=== PATIENT | female | born 1985 | race Caucasian/White ===

== ENCOUNTER 2019-06-15 01:34 | Emergency (ER) | payer BC ==
--- NOTE | 2019-06-15 01:48 | EDM.PDOC ---
ED HPI GENERAL MEDICAL PROBLEM - General Chief Complaint: PUMP TENDER Problem Stated Complaint: 14WKS AND HAVING DISCHARGES Time Seen by Provider: 06/15/19 01:35 - History of Present Illness INITIAL COMMENTS - FREE TEXT/NARRATIVE: HISTORY AND PHYSICAL: History of present illness: The patient is a 33-year-old female who is a 2 para 0 and is 14 weeks by a confirmed by Dr. Coronado and whose EDC is 12/13/2019 and presents with complaints of having a normal day yesterday and being asleep when she woke up feeling like there was fluid coming out of her vagina and having clear fluid per vagina.. She did not have any bleeding from the vagina and no pain. She says that she only has had one episode of this when she was in bed and she has not had any more leakage of fluid nor has she had to use a pad She has not had sexual intercourse the last 24 hours and has not had any dysuria frequency urgency or flank pain. She's had no fever chills nausea vomiting and has been eating and drinking normally. The patient had a miscarriage with her first at about 6 weeks and she is very concerned about tonight's events and contacted her OB M.D. who recommended that she come here for evaluation. She says that the fluid was absolutely clear and not bloody or yellow. On my review of the computer the patient is noted to be O- status. Review of systems: As per history of present illness and below otherwise all systems reviewed and negative. Past medical history: As per history of present illness and as reviewed below otherwise noncontributory. Surgical history: As per history of present illness and as reviewed below otherwise noncontributory. Social history: No reported history of drug or alcohol abuse. Family history: As per history of present illness and as reviewed below otherwise noncontributory. Physical exam: General: Well-developed well-nourished mildly overweight female who is nontoxic and vital signs are noted by me. HEENT: Atraumatic, normocephalic, negative for conjunctival pallor or scleral icterus, mucous membranes moist, throat clear, neck supple, nontender, trachea midline. Lungs: Clear to auscultation, breath sounds equal bilaterally, chest nontender. Heart: S1S2, regular rate and rhythm no overt murmurs Abdomen: Soft, nondistended, nontender. Negative for masses or hepatosplenomegaly. Negative for costovertebral tenderness. Pelvis: Stable nontender. Genitourinary: Sternal genitalia within normal limits and there is some whitish thickish discharge in the vault without any clear fluid or blood. There is some mucus at the cervical os but the os is closed. Rectal: Deferred. Extremities: Atraumatic, negative for cords or calf pain. Neurovascular unremarkable. Neuro: Awake, alert, oriented. Cranial nerves II through XII unremarkable. Cerebellum unremarkable. Motor and sensory unremarkable throughout. Exam nonfocal. Diagnostics: CBC serum quantitative hCG pelvic ultrasound Therapeutics: Specifically called the [facility] radiologist specifically asked about the amniotic fluid on the ultrasound which she told me was normal appearing. 0255: Case was discussed with Dr. Coronado who agrees with discharge home and pelvic rest and she would like the patient to call the clinic for a follow-up appointment in the next 24-36 hours. I have informed patient and significant other bedside of testing results and plan for home. Dr. Coronado does not want any Rho Debby that there was no vaginal bleeding and no sign of any subchorionic bleeding Impression: Unexplained vaginal discharge in second trimester stable Definitive disposition and diagnosis as appropriate pending reevaluation and review of above. - Related Data Allergies Allergy/AdvReac Type Severity Reaction Status Date / Time No Known Allergies Allergy Verified 06/15/19 01:42 Home Meds: Home Meds #103/Iron Fumarate/Fa [ ] 1 tab PO DAILY 06/15/19 [ History] Social & Family History - Tobacco Use Smoking Status *Q: Never Smoker - Recreational Drug Use Recreational Drug Use: No ED ROS GENERAL - Review of Systems Review Of Systems: ROS reveals no pertinent complaints other than HPI. ED EXAM, GENERAL - Physical Exam Exam: See Below (See dictation) Course - Vital Signs Last Recorded V/S: Last Vital Signs Temp 36.1 C 06/15/19 01:34 Pulse 81 06/15/19 01:34 Resp 18 06/15/19 01:34 BP 119/60 06/15/19 01:34 Pulse Ox 97 06/15/19 01:34 - Orders/Labs/Meds Orders: Active Orders 24 hr Category Date Time Status HCG QUANTITATIVE [CHEM] Stat Lab 06/15/19 02:00 Received Labs: Laboratory Tests 06/15/19 Range/Units 02:00 WBC 8.41 (4.0-11.0) K/uL RBC 4.16 L (4.30-5.90) M/uL Hgb 12.1 (12.0-16.0) g/dL Hct 36.0 (36.0-46.0) % MCV 86.5 (80.0-98.0) fL MCH 29.1 (27.0-32.0) pg MCHC 33.6 (31.0-37.0) g/dL RDW Std Deviation 41.3 (28.0-62.0) fl RDW Coeff of Nayely 13 (11.0-15.0) % Plt Count 238 (150-400) K/uL MPV 10.00 (7.40-12.00) fL Neut % (Auto) 63.4 (48.0-80.0) % Lymph % (Auto) 27.5 (16.0-40.0) % [place] % (Auto) 7.6 (0.0-15.0) % Eos % (Auto) 1.4 (0.0-7.0) % Baso % (Auto) 0.1 (0.0-1.5) % Neut # (Auto) 5.3 (1.4-5.7) K/uL Lymph # (Auto) 2.3 (0.6-2.4) K/uL [place] # (Auto) 0.6 (0.0-0.8) K/uL Eos # (Auto) 0.1 (0.0-0.7) K/uL Baso # (Auto) 0.0 (0.0-0.1) K/uL Nucleated RBC % 0.0 /100WBC Nucleated RBCs # 0 K/uL Departure - Departure Time of Disposition: 03:00 Disposition: Home, Self-Care 01 Condition: Good Clinical Impression: Second trimester , Vaginal discharge - Discharge Information Referrals: PCP,None [Primary Care Provider] - Forms: ED Department Discharge Additional Instructions: The following information is given to patients seen in the emergency department who are being discharged to home. This information is to outline your options for follow-up care. We provide all patients seen in our emergency department with a follow-up referral. The need for follow-up, as well as the timing and circumstances, are variable depending upon the specifics of your emergency department visit. If you don't have a primary care physician on staff, we will provide you with a referral. We always advise you to contact your personal physician following an emergency department visit to inform them of the circumstance of the visit and for follow-up with them and/or the need for any referrals to a consulting specialist. The emergency department will also refer you to a specialist when appropriate. This referral assures that you have the opportunity for followup care with a specialist. All of these measure are taken in an effort to provide you with optimal care, which includes your followup. Under all circumstances we always encourage you to contact your private physician who remains a resource for coordinating your care. When calling for followup care, please make the office aware that this follow-up is from your recent emergency room visit. If for any reason you are refused follow-up, please contact the [facility] emergency department at and ask to speak to the emergency department charge nurse. [facility] [address] [address] Strict pelvic rest until you are cleared by Dr. Coronado. Please call the clinic later this morning and schedule a follow-up appointment with her in the next 24- 36 hours per her direction. Push hydration and continue to monitor symptoms. Return to ER as needed and as discussed - My Orders Last 24 Hours: My Active Orders 06/15/19 02:00 HCG QUANTITATIVE [CHEM] Stat - Assessment/Plan Last 24 Hours: My Active Orders 06/15/19 02:00 HCG QUANTITATIVE [CHEM] Stat
--- NOTE | 2019-06-15 02:53 | US ---
INDICATION: . Leaking vaginal fluid. TECHNIQUE: Ultrasound OB pelvis transabdominal. Real-time chavez-scale imaging of the fetus was performed as well as color Doppler and spectral Doppler analysis of the umbilical artery. COMPARISON: None. FINDINGS: Sonographic imaging demonstrates a single living intrauterine gestation. Fetus demonstrates a regular cardiac rate of 153 beats per minute. Fetus has a cephalic orientation. The placenta lies posterior without evidence of placenta previa. Amniotic fluid volume appears normal. Biometry: Biparietal diameter: 2.5 cm, 14 weeks 1 day. Femoral length: 1.4 cm, 14 weeks 1 day. [place]-rump length: 1.4 cm, 14 weeks 1 day. No sign of hemorrhage or other fluid collection. Ovaries were not visualized. IMPRESSION: 1.Single viable intrauterine with an estimated ultrasound age of 14 weeks 1 day and estimated date of delivery December 13, 2019. 2.Amniotic fluid volume is normal. No sign of hemorrhage or other abnormality. Dictated by Wayne Vela MD @ Jun 15 2019 6:07PM Signed by Dr. Wayne Vela @ Jun 15 2019 6:18PM
== END 2019-06-15 03:08 | disposition home or self-care (01) ==
LOC: MW.ED 01:34
DX: O99.89 Other specified diseases and conditions complicating pregnancy, childbirth and the puerperium (principal); N89.8 Other specified noninflammatory disorders of vagina; Z3A.14 14 weeks gestation of pregnancy
CPT/HCPCS: 36415; 76815; 76815-26; 84702; 85025; 99283-25; 99284

== ENCOUNTER 2019-12-06 00:23 | Inpatient (IN) | payer BC ==
[2019-12-06] MEDS ORDERED: Tranexamic Acid 1,000 MG in Sodium Chloride 0.9% 100 ML IV PRN (00:44)
[2019-12-06] MEDS ORDERED: Water For Irrigation,Sterile 1,000 ML Container IRR PRN (00:44)
[2019-12-06] MEDS ORDERED: Sodium Chloride 0.9% 10 ML SDV IV PRN (00:44)
[2019-12-06] MEDS ORDERED: Carboprost Tromethamine 250 MCG/1 ML Amp IM PRN (00:44)
[2019-12-06] MEDS ORDERED: Sodium Chloride 0.9% 10 ML Syringe FLUSH PRN (00:44)
[2019-12-06] MEDS ORDERED: Misoprostol 200 MCG Tab PO PRN (00:44)
[2019-12-06] MEDS ORDERED: Nalbuphine 10 MG/1 ML Vial IVPUSH PRN (00:44)
[2019-12-06] MEDS ORDERED: Sodium Chloride 0.9% 2.5 ML Syringe FLUSH PRN (00:44)
[2019-12-06] MEDS ORDERED: Methylergonovine 0.2 MG/1 ML Amp IM PRN (00:44)
[2019-12-06] MEDS ORDERED: Lidocaine 1% 50 ML MDV INJECT PRN (00:44)
[2019-12-06] MEDS ORDERED: Terbutaline 1 MG/ML SDV SUBCUT PRN (00:44)
[2019-12-06] MEDS ORDERED: Oxytocin/0.9 % Sodium Chloride 30 UNIT/500 ML BAG IV SCH ×2 (00:45)
[2019-12-06] MEDS: Lactated Ringers 1,000 ML IV SCH ×4 (01:13→22:00)
[2019-12-06] MEDS ORDERED: Misoprostol 25 MCG (1/4 of 100 MCG) Tab VAG PRN (01:30)
[2019-12-06] MEDS: Misoprostol 25 MCG (1/4 of 100 MCG) Tab VAG PRN ×2 (05:51→10:40)
[2019-12-06] MEDS: Butorphanol 1 MG/ML SDV IVPUSH PRN ×2 (11:38→16:42)
[2019-12-06] MEDS ORDERED: Bupivicaine/fentaNYL/NS 250 ML ONE (19:54)
[2019-12-06] MEDS ORDERED: Ropivacaine 0.2% PF 2 MG/ML 20 ML SDV ONE ×2 (19:54→20:15)
[2019-12-06] MEDS ORDERED: ePHEDrine 50 MG/ML SDV ONE (20:25)
--- NOTE | 2019-12-06 20:47 | PCM.PREANE ---
Preanesthetic Assessment - Procedure Proposed Procedure: labor epidural - Anesthesia/Transfusion/Family Hx Anesthesia History: Prior Anesthesia Without Reaction Family History of Anesthesia Reaction: No Transfusion History: No Prior Transfusion(s) - Review of Systems General: No Symptoms Pulmonary: No Symptoms Cardiovascular: No Symptoms Gastrointestinal: No Symptoms Neurological: No Symptoms Other: Reports: None - Physical Assessment Height: 5 ft 9 in Weight: 140.614 kg ASA Class: 3 Mental Status: Alert & Oriented x3 Airway Class: Mallampati = 1 Dentition: Reports: Normal Dentition Thyro-Mental Finger Breadths: 3 Mouth Opening Finger Breadths: 3 ROM/Head Extension: Full Lungs: Clear to Auscultation, Normal Respiratory Effort Cardiovascular: Regular Rate, Regular Rhythm - Lab Values: Laboratory Last Values WBC 11.23 K/uL (4.0-11.0) H 12/06/19 01:10 RBC 4.05 M/uL (4.30-5.90) L 12/06/19 01:10 Hgb 10.6 g/dL (12.0-16.0) L 12/06/19 01:10 Hct 33.0 % (36.0-46.0) L 12/06/19 01:10 MCV 81.5 fL (80.0-98.0) 12/06/19 01:10 MCH 26.2 pg (27.0-32.0) L 12/06/19 01:10 MCHC 32.1 g/dL (31.0-37.0) 12/06/19 01:10 RDW Std Deviation 42.3 fl (28.0-62.0) 12/06/19 01:10 RDW Coeff of Nayely 14 % (11.0-15.0) 12/06/19 01:10 Plt Count 278 K/uL (150-400) 12/06/19 01:10 MPV 12.20 fL (7.40-12.00) H 12/06/19 01:10 Nucleated RBC % 0.0 /100WBC 12/06/19 01:10 Nucleated RBCs # 0 K/uL 12/06/19 01:10 Blood Type O NEGATIVE 12/06/19 01:10 Antibody Screen NEGATIVE 12/06/19 01:10 - Allergies Allergies/Adverse Reactions: Allergies Allergy/AdvReac Type Severity Reaction Status Date / Time No Known Allergies Allergy Verified 12/06/19 00:44 - Blood Blood Available: Yes Product(s) Available: PRBC - Anesthesia Plan Pre-Op Medication Ordered: None - Acknowledgements Anesthesia Type Planned: Epidural Pt an Appropriate Candidate for the Planned Anesthesia: Yes Alternatives and Risks of Anesthesia Discussed w Pt/Guardian: Yes Pt/Guardian Understands and Agrees with Anesthesia Plan: Yes PreAnesthesia Questionnaire - Past Health History Medical/Surgical History: Denies Medical/Surgical History REHAB SPECIALIST History: Reports: , Spontaneous - SUBSTANCE USE Smoking Status *Q: Never Smoker Second Hand Smoke Exposure: No - HOME MEDS Home Medications: Home Meds #103/Iron Fumarate/Fa [ ] 1 tab PO DAILY 06/15/19 [ History] - CURRENT (IN HOUSE) MEDS Current Meds: Current Medications Butorphanol Tartrate (Stadol) 1 mg IVPUSH Q1H PRN PRN Reason: Pain Last Admin: 12/06/19 16:42 Dose: 1 mg Carboprost Tromethamine (Hemabate Ds) 250 mcg IM ASDIRECTED PRN PRN Reason: Post Hemorrhage Lactated Ringer's (Ringers, Lactated) 1,000 mls @ 150 mls/hr IV ASDIRECTED TANJA Last Admin: 12/06/19 20:37 Dose: 150 mls/hr Oxytocin/Sodium Chloride (Oxytocin 30 Unit/500 Ml-Ns) 30 unit in 500 mls @ 500 mls/hr IV TITRATE TANJA Oxytocin/Sodium Chloride (Oxytocin 30 Unit/500 Ml-Ns) 30 unit in 500 mls @ 2 mls/hr IV TITRATE TANJA; Protocol Last Titration: 12/06/19 18:15 Dose: 6 munits/min, 6 mls/hr Tranexamic Acid 1,000 mg/ (Sodium Chloride) 110 mls @ 660 mls/hr IV ONETIME PRN PRN Reason: Bleeding Lidocaine HCl (Xylocaine 1%) 50 ml INJECT ONETIME PRN PRN Reason: Laceration repair Methylergonovine Maleate (Methergine) 0.2 mg IM ASDIRECTED PRN PRN Reason: Post Hemorrhage Misoprostol (Cytotec) 200 mcg PO ONETIME PRN PRN Reason: Post Hemorrhage Misoprostol (Cytotec) 25 mcg VAG ONETIME PRN PRN Reason: Cervical Ripening Last Admin: 12/06/19 01:48 Dose: 25 mcg Misoprostol (Cytotec) 25 mcg VAG Q4H PRN PRN Reason: Cervical Ripening Last Admin: 12/06/19 10:40 Dose: 25 mcg Nalbuphine HCl (Nubain) 10 mg IVPUSH Q1H PRN PRN Reason: Pain (severe 7-10) Sodium Chloride (Saline Flush) 10 ml FLUSH ASDIRECTED PRN PRN Reason: Keep Vein Open Sodium Chloride (Saline Flush) 2.5 ml FLUSH ASDIRECTED PRN PRN Reason: Keep Vein Open Sodium Chloride (Normal Saline) 10 ml IV ASDIRECTED PRN PRN Reason: IV Use Sterile Water (Sterile Water For Irrigation) 1,000 ml IRR ASDIRECTED PRN PRN Reason: delivery Terbutaline Sulfate (Brethine) 0.25 mg SUBCUT ASDIRECTED PRN PRN Reason: Tacysystole Discontinued Medications Ephedrine Sulfate (Ephedrine Sulfate) Confirm Administered Dose 50 mg .ROUTE .STK-MED ONE Stop: 12/06/19 20:26 Fentanyl/Bupivacaine HCl (Fentanyl/Bupivacaine/Ns 2 Mcg-0.125% 250 Ml) Confirm Administered Dose 250 mls @ as directed .ROUTE .STK-MED ONE Stop: 12/06/19 19:55 Ropivacaine (Naropin 0.2%) Confirm Administered Dose 20 ml .ROUTE .STK-MED ONE Stop: 12/06/19 19:55 Ropivacaine (Naropin 0.2%) Confirm Administered Dose 20 ml .ROUTE .STK-MED ONE Stop: 12/06/19 20:16
[2019-12-06] MEDS ORDERED: Ondansetron 4 MG/2 ML SDV ONE (23:18)
[2019-12-06] MEDS ORDERED: Ondansetron 4 MG/2 ML SDV IVPUSH PRN (23:32)
[2019-12-07] MEDS ORDERED: Bupivacaine 0.5% 30 ML SDV ONE (04:44)
[2019-12-07] MEDS ORDERED: Citric Acid/Sodium Citrate Solution 30 ML Cup ONE (04:44)
[2019-12-07] MEDS ORDERED: ceFAZolin/Dextrose,Iso-Osmotic 2 GM/50 ML Duplex Bag IV ONE (04:46)
[2019-12-07] MEDS ORDERED: Morphine PF 10 MG/10 ML SDV ONE (04:46)
[2019-12-07] MEDS ORDERED: Octyl 2-Cyanoacrylate 1 Tube ONE (04:49)
[2019-12-07] MEDS ORDERED: Citric Acid/Sodium Citrate Solution 30 ML Cup PO ONE (04:59)
[2019-12-07] MEDS ORDERED: Acetaminophen/oxyCODONE 325-5 MG Tab PO PRN ×2 (05:03→06:21)
[2019-12-07] MEDS ORDERED: Nalbuphine 10 MG/1 ML Vial IVPUSH PRN (05:03)
[2019-12-07] MEDS ORDERED: fentaNYL 100 MCG/2 ML SDV IVPUSH PRN (05:03)
[2019-12-07] MEDS ORDERED: Methylergonovine 0.2 MG/1 ML Amp IM PRN (06:21)
[2019-12-07] MEDS ORDERED: Ondansetron 4 MG/2 ML SDV IVPUSH PRN (06:21)
[2019-12-07] MEDS ORDERED: Oxytocin 10 Units/1 ML SDV IM PRN (06:21)
[2019-12-07] MEDS ORDERED: diphenhydrAMINE 50 MG/ML SDV IVPUSH PRN (06:21)
[2019-12-07] MEDS ORDERED: Tranexamic Acid 1,000 MG in Sodium Chloride 0.9% 100 ML IV PRN (06:21)
[2019-12-07] MEDS ORDERED: Bisacodyl 10 MG Supp RECTAL PRN (06:21)
[2019-12-07] MEDS ORDERED: Misoprostol 200 MCG Tab RECTAL PRN (06:21)
[2019-12-07] MEDS ORDERED: Lanolin 100% Cream 7 GM Tube TOP PRN (06:21)
[2019-12-07] MEDS ORDERED: Oxytocin/Lactated Ringers 30 UNIT/500 ML BAG IV SCH (06:30)
--- NOTE | 2019-12-07 06:30 | PCM.OPNOTE ---
- General Post-Op/Procedure Note Date of Surgery/Procedure: 12/07/19 Operative Procedure(s): Primary lower segment Findings: Live male delivered at 527am , 8/ 9 weight: 3510g Pre Op Diagnosis: 34yo @ 39w1d. Cat 2FHT remote from delivery Post-Op Diagnosis: same Anesthesia Technique: Epidural Primary Surgeon: Gaurang Smart Anesthesia Provider: Guerrero Latif Air Drill Operator: Janae Root Fluid Replacement, Intraop: 400 Output, Urine Amount: 50 EBL in mLs: 500 Complications: None Condition: Good
[2019-12-07] MEDS: Ketorolac 30 MG/ML SDV IVPUSH SCH ×3 (07:06→18:57)
--- NOTE | 2019-12-07 07:13 | PCM.POSTAN ---
POST ANESTHESIA ASSESSMENT - MENTAL STATUS Mental Status: Alert, Oriented - RESPIRATORY Respiratory Status: Respiratory Rate WNL, Airway Patent, O2 Saturation Stable - CARDIOVASCULAR CV Status: Pulse Rate WNL, Blood Pressure Stable - GASTROINTESTINAL GI Status: No Symptoms - PAIN Pain Score: 0 - POST OP HYDRATION Hydration Status: Adequate & Stable - OBSERVATIONS Free Text/Narrative:: T-6 sensory level, however motor function is starting to return to bilateral lower extremities.
--- NOTE | 2019-12-07 08:02 | OR ---
SURGEON: SHUBHAM LOAIZA DATE OF PROCEDURE: 12/07/2019 PREOPERATIVE DIAGNOSIS: A 34-year-old 2, para 0-0-1-0 at 39 weeks 1 day, for primary section secondary to category 2 heart tracing, remote from delivery. RH negative POSTOPERATIVE DIAGNOSIS: A 34-year-old 2, para 0-0-1-0 at 39 weeks 1 day, for primary section secondary to category 2 heart tracing, remote from delivery. PROCEDURE: Primary lower segment ESTIMATED BLOOD LOSS: 500. IV FLUIDS: 400. URINE OUTPUT: 50. ANESTHESIA: Epidural. COMPLICATION: None. CENTRAL SUPPLY TECHNICIAN: Janae Root. NOTES AND FINDING: A live male delivered at 5:27 a.m. scores 8 and 9, weight is 3510g. BRIEF HISTORY: The patient is a 34-year-old, G2, P 1-0-0-1 at 39 weeks and 1 day, who was admitted for elective induction of labor. She had uncomplicated care, except for marginal placental cord insertion and also suspected macrosomia. The patient came in for induction of labor. She received 3 doses of Cytotec. The patient became about 2 to 3 cm dilated. An attempt was made to put a CRB balloon, which was expelled immediately during placement. She was then noted to be about 3 cm dilated at 3/50, -2. Pitocin was started. When Pitocin was started, Pitocin was being turned on and off because of category 2 heart tracing. She was having some late variable decelerations, which improved after the Pitocin was either reduced or she was placed in left lateral position, and oxygen. Then AROM was done, which was clear fluid. IUPC was placed. Pitocin was then increased to 18mu . The patient was having intermittent category 2 heart tracing was persistent with Pitocin at 18mu. Pitocin was reduced to 16mu. VE was 4cm. The patient was informed that the baby was not tolerating labor, and she was offered the , which she accepted. She was explained the risks, benefits, and alternatives; and she decided to proceed. DESCRIPTION OF PROCEDURE: The patient was taken to the operating room, where she was placed in dorsal supine position with a leftward tilt. A lower transverse incision was made on the abdomen and carried down to the fascia with the Bovie. The fascia was incised and extended laterally. The fascia was from the rectus muscles superiorly and inferiorly. Rectus muscle was in the midline down to the level of the pubic symphysis. The peritoneum was entered in bluntly. The Stu retractor was placed in to expose the lower uterine segment. A bladder flap was created. A lower uterine incision was made. The fetus was found in cephalic position and was brought to the level of the incision and, with fundal pressure, was delivered without difficulty. The cord was clamped and cut. The fetus was handed over to the awaiting pediatric team. The placenta was then delivered by manual massage of the uterine fundus. The uterine cavity was cleaned with moist laparotomy sponges. Cord blood gases were obtained. The uterus was closed in 2 layers, first layer with 0 Vicryl, second layer with 0 Monocryl. The incision was inspected and noted to be hemostatic. The gutters were cleaned. The adnexa were inspected and noted to be normal. The Stu retractor was then removed, and the incision was inspected again and noted to be hemostatic. Then the peritoneum was closed with 2-0 Vicryl. The rectus muscle was apposed in the midline with also 2-0 Vicryl. The fascia was closed with 0 Vicryl. The subcutaneous fat was closed with 3-0 plain gut. The skin was closed with 3-0 Monocryl on a Elías needle. All instrument and pad counts were correct x2. The patient tolerated the procedure well and was taken from the Labor and Delivery room in stable condition. SANTOS / ANÍBAL /[id number] MTDNora
[2019-12-07] MEDS: Lactated Ringers 1,000 ML IV SCH ×2 (08:55→17:14)
[2019-12-07] MEDS: Docusate Sodium 100 MG Cap PO SCH (20:48)
[2019-12-08] MEDS: Ketorolac 30 MG/ML SDV IVPUSH SCH ×2 (01:08→06:38)
--- NOTE | 2019-12-08 07:41 | PCM48HPAN ---
Post Anesthesia Note - EVALUATION WITHIN 48HRS OF ANESTHETIC Vital Signs in Normal Range: Yes Patient Participated in Evaluation: Yes Respiratory Function Stable: Yes Airway Patent: Yes Cardiovascular Function Stable: Yes Hydration Status Stable: Yes Pain Control Satisfactory: Yes Nausea and Vomiting Control Satisfactory: Yes Mental Status Recovered: Yes Vital Signs: Last Vital Signs Temp 36.8 C 12/08/19 00:00 Pulse 83 12/08/19 05:00 Resp 18 12/08/19 05:00 BP 130/76 12/08/19 05:00 Pulse Ox 100 12/08/19 05:00
[2019-12-08] MEDS ORDERED: Ibuprofen 800 MG Tab PO PRN (12:00)
[2019-12-08] MEDS: Acetaminophen/oxyCODONE 325-5 MG Tab PO PRN (16:17)
--- NOTE | 2019-12-08 18:19 | PCM.PNPP ---
- General Info Date of Service: 12/08/19 Subjective Update: Patient seen at bedside , she is tolerating regular diet , ambulating and voiding she is having some problems with but is getting support Functional Status: Reports: Pain Controlled, Tolerating Diet, Ambulating, Urinating - Review of Systems General: Reports: No Symptoms HEENT: Reports: No Symptoms Pulmonary: Reports: No Symptoms Cardiovascular: Reports: No Symptoms Gastrointestinal: Reports: No Symptoms Genitourinary: Reports: No Symptoms Musculoskeletal: Reports: No Symptoms Skin: Reports: No Symptoms Neurological: Reports: No Symptoms Psychiatric: Reports: No Symptoms - General Info Date of Service: 12/08/19 - Patient Data Vital Signs - Most Recent: Last Vital Signs Temp 36.5 C 12/08/19 08:05 Pulse 94 12/08/19 08:05 Resp 16 12/08/19 08:05 BP 119/72 12/08/19 08:05 Pulse Ox 96 12/08/19 08:05 Weight - Most Recent: 140.614 kg I&O - Last 24 Hours: Intake & Output 12/08/19 12/08/19 12/08/19 06:59 14:59 22:59 Intake Total 2 Output Total 300 Balance -298 Lab Results - Last 24 Hours: Laboratory Results - last 24 hr 12/07/19 12/08/19 Range/Units 07:03 05:32 Hgb 8.9 L (12.0-16.0) g/dL Hct 28.2 L (36.0-46.0) % Antibody Screen NEGATIVE Screen NEGATIVE (NEGATIVE) RhIG Candidate? YES Rhogam Indicated YES, BABY RH POS H Med Orders - Current: Current Medications Bisacodyl (Dulcolax) 10 mg RECTAL ONETIME PRN PRN Reason: Constipation Carboprost Tromethamine (Hemabate Ds) 250 mcg IM ASDIRECTED PRN PRN Reason: Post Hemorrhage Diphenhydramine HCl (Benadryl) 25 mg IVPUSH Q6H PRN PRN Reason: Itching or Nausea Docusate Sodium (Colace) 100 mg PO BID TANJA Last Admin: 12/07/19 20:48 Dose: 100 mg Emollient Ointment (Lansinoh Hpa) 0 gm TOP ASDIRECTED PRN PRN Reason: Sore Nipples Last Admin: 12/07/19 19:06 Dose: 1 tube Tranexamic Acid 1,000 mg/ (Sodium Chloride) 110 mls @ 660 mls/hr IV ONETIME PRN PRN Reason: Bleeding Tranexamic Acid 1,000 mg/ (Sodium Chloride) 110 mls @ 660 mls/hr IV ONETIME PRN PRN Reason: Bleeding Lactated Ringer's (Ringers, Lactated) 1,000 mls @ 125 mls/hr IV ASDIRECTED TANJA Last Admin: 12/07/19 17:14 Dose: 125 mls/hr Oxytocin/Lactated Ringer's (Pitocin In Lr 30 Units/500 Ml) 30 unit in 500 mls @ 125 mls/hr IV TITRATE TANJA; Protocol Ibuprofen (Motrin) 800 mg PO Q8H PRN PRN Reason: mild pain or fever Methylergonovine Maleate (Methergine) 0.2 mg IM ASDIRECTED PRN PRN Reason: Post Hemorrhage Methylergonovine Maleate (Methergine) 0.2 mg IM ONETIME PRN PRN Reason: Excessive Vaginal Bleeding Misoprostol (Cytotec) 200 mcg PO ONETIME PRN PRN Reason: Post Hemorrhage Misoprostol (Cytotec) 1,000 mcg RECTAL ONETIME PRN PRN Reason: excessive bleeding Ondansetron HCl (Zofran) 4 mg IVPUSH Q4H PRN PRN Reason: Nausea/Vomiting Oxycodone/Acetaminophen (Percocet 325-5 Mg) 1 tab PO ONETIME PRN PRN Reason: Pain (moderate 4-6) Oxycodone/Acetaminophen (Percocet 325-5 Mg) 1 tab PO Q4H PRN PRN Reason: Pain (moderate 4-6) Oxycodone/Acetaminophen (Percocet 325-5 Mg) 2 tab PO Q4H PRN PRN Reason: Pain (moderate 4-6) Last Admin: 12/08/19 16:17 Dose: 2 tab Oxytocin (Pitocin) 10 unit IM ASDIRECTED PRN PRN Reason: Excessive Vaginal Bleeding Sodium Chloride (Saline Flush) 10 ml FLUSH ASDIRECTED PRN PRN Reason: Keep Vein Open Sodium Chloride (Saline Flush) 2.5 ml FLUSH ASDIRECTED PRN PRN Reason: Keep Vein Open Sodium Chloride (Normal Saline) 10 ml IV ASDIRECTED PRN PRN Reason: IV Use Discontinued Medications Bupivacaine HCl (Marcaine 0.5%) Confirm Administered Dose 30 ml .ROUTE .STK-MED ONE Stop: 12/07/19 04:45 Butorphanol Tartrate (Stadol) 1 mg IVPUSH Q1H PRN PRN Reason: Pain Last Admin: 12/06/19 16:42 Dose: 1 mg Cefazolin Sodium/Dextrose (Ancef) Confirm Administered Dose 2 gm IV .STK-MED ONE Stop: 12/07/19 04:47 Citric Acid/Sodium Citrate (Bicitra Solution) Confirm Administered Dose 30 ml .ROUTE .STK-MED ONE Stop: 12/07/19 04:45 Last Admin: 12/07/19 04:57 Dose: 30 ml Citric Acid/Sodium Citrate (Bicitra Solution) 30 ml PO ONETIME ONE Stop: 12/07/19 05:00 Ephedrine Sulfate (Ephedrine Sulfate) Confirm Administered Dose 50 mg .ROUTE .STK-MED ONE Stop: 12/06/19 20:26 Fentanyl (Sublimaze) 50 mcg IVPUSH Q5M PRN PRN Reason: Pain (severe 7-10) Stop: 12/08/19 05:03 Lactated Ringer's (Ringers, Lactated) 1,000 mls @ 150 mls/hr IV ASDIRECTED TANJA Last Admin: 12/06/19 22:00 Dose: 150 mls/hr Oxytocin/Sodium Chloride (Oxytocin 30 Unit/500 Ml-Ns) 30 unit in 500 mls @ 500 mls/hr IV TITRATE TANJA Oxytocin/Sodium Chloride (Oxytocin 30 Unit/500 Ml-Ns) 30 unit in 500 mls @ 2 mls/hr IV TITRATE TANJA; Protocol Last Titration: 12/07/19 04:54 Dose: 0 munits/min, 0 mls/hr Fentanyl/Bupivacaine HCl (Fentanyl/Bupivacaine/Ns 2 Mcg-0.125% 250 Ml) Confirm Administered Dose 250 mls @ as directed .ROUTE .STK-MED ONE Stop: 12/06/19 19:55 Ketorolac Tromethamine (Toradol) 30 mg IVPUSH Q6H TANJA Stop: 12/08/19 06:31 Last Admin: 12/08/19 06:38 Dose: 30 mg Lidocaine HCl (Xylocaine 1%) 50 ml INJECT ONETIME PRN PRN Reason: Laceration repair Misoprostol (Cytotec) 25 mcg VAG ONETIME PRN PRN Reason: Cervical Ripening Last Admin: 12/06/19 01:48 Dose: 25 mcg Misoprostol (Cytotec) 25 mcg VAG Q4H PRN PRN Reason: Cervical Ripening Last Admin: 12/06/19 10:40 Dose: 25 mcg Morphine Sulfate (Duramorph Pf) Confirm Administered Dose 10 mg .ROUTE .STK-MED ONE Stop: 12/07/19 04:47 Nalbuphine HCl (Nubain) 10 mg IVPUSH Q1H PRN PRN Reason: Pain (severe 7-10) Nalbuphine HCl (Nubain) 2.5 mg IVPUSH Q3H PRN PRN Reason: Pruritis Stop: 12/08/19 05:03 Octyl Cyanoacrylate (Dermabond Advance) Confirm Administered Dose 1 applic .ROUTE .STK-MED ONE Stop: 12/07/19 04:50 Ondansetron HCl (Zofran) Confirm Administered Dose 4 mg .ROUTE .STK-MED ONE Stop: 12/06/19 23:19 Ondansetron HCl (Zofran) 4 mg IVPUSH Q4H PRN PRN Reason: Nausea/Vomiting Last Admin: 12/06/19 23:38 Dose: 4 mg Ropivacaine (Naropin 0.2%) Confirm Administered Dose 20 ml .ROUTE .STK-MED ONE Stop: 12/06/19 19:55 Ropivacaine (Naropin 0.2%) Confirm Administered Dose 20 ml .ROUTE .STK-MED ONE Stop: 12/06/19 20:16 Sterile Water (Sterile Water For Irrigation) 1,000 ml IRR ASDIRECTED PRN PRN Reason: delivery Terbutaline Sulfate (Brethine) 0.25 mg SUBCUT ASDIRECTED PRN PRN Reason: Tacysystole - Infant Interaction Support Person: - Recovery Exam Fundal Tone: Firm Fundal Level: 1 Fingerbreadths Below Umbilicus Fundal Placement: Midline Lochia Amount: Scant Lochia Color: Rubra/Red Perineum Description: Intact, Minimal Bruising/Swelling Episiotomy/Laceration: Approximated Bladder Status: Indwelling Catheter in Place Urinary Elimination: Indwelling Catheter - Exam General: Alert HEENT: Pupils Equal Neck: Supple Lungs: Clear to Auscultation Cardiovascular: Regular Rate, Regular Rhythm GI/Abdominal Exam: Normal Bowel Sounds, Other (Pfannesteil skin incision with Berenice dressing c/d/i ( small stained spot on the dressing)) Extremities: Normal Inspection Wound/Incisions: Dressing Dry and Intact Neurological: No New Focal Deficit Psy/Mental Status: Alert - Problem List & Annotations (1) delivery delivered SNOMED Code(s): 179670713 Code(s): O82 - ENCOUNTER FOR DELIVERY WITHOUT INDICATION Status: Acute Current Visit: Yes - Problem List Review Problem List Initiated/Reviewed/Updated: Yes - My Orders Last 24 Hours: My Active Orders 12/08/19 12:00 Ibuprofen [Motrin] 800 mg PO Q8H PRN - Assessment Assessment:: 34yo P1 s/p Primary , Mild aneamia asymtomatic met all post op goals , with some support Normal lochia - Plan Plan:: Pain control as needed Iron daily Desires to go home if baby can be discharged. Will discharge her home today
[2019-12-08] MEDS: Docusate Sodium 100 MG Cap PO SCH (20:16)
[2019-12-09] MEDS: Acetaminophen/oxyCODONE 325-5 MG Tab PO PRN (08:01)
[2019-12-09] MEDS: Docusate Sodium 100 MG Cap PO SCH (08:01)
--- NOTE | 2019-12-09 09:27 | PCM.PNPP ---
- General Info Date of Service: 12/09/19 Functional Status: Reports: Pain Controlled, Tolerating Diet, Ambulating, Urinating - Review of Systems General: Reports: No Symptoms HEENT: Reports: No Symptoms Pulmonary: Reports: No Symptoms Cardiovascular: Reports: No Symptoms Gastrointestinal: Reports: No Symptoms Genitourinary: Reports: No Symptoms Musculoskeletal: Reports: No Symptoms Skin: Reports: No Symptoms Neurological: Reports: No Symptoms Psychiatric: Reports: No Symptoms - General Info Date of Service: 12/09/19 - Patient Data Vital Signs - Most Recent: Last Vital Signs Temp 36.3 C 12/09/19 08:00 Pulse 81 12/09/19 08:00 Resp 16 12/09/19 08:00 BP 108/64 12/09/19 08:00 Pulse Ox 98 12/09/19 08:00 Weight - Most Recent: 140.614 kg Med Orders - Current: Current Medications Bisacodyl (Dulcolax) 10 mg RECTAL ONETIME PRN PRN Reason: Constipation Carboprost Tromethamine (Hemabate Ds) 250 mcg IM ASDIRECTED PRN PRN Reason: Post Hemorrhage Diphenhydramine HCl (Benadryl) 25 mg IVPUSH Q6H PRN PRN Reason: Itching or Nausea Docusate Sodium (Colace) 100 mg PO BID [facility] Last Admin: 12/09/19 08:01 Dose: 100 mg Emollient Ointment (Lansinoh Hpa) 0 gm TOP ASDIRECTED PRN PRN Reason: Sore Nipples Last Admin: 12/07/19 19:06 Dose: 1 tube Tranexamic Acid 1,000 mg/ (Sodium Chloride) 110 mls @ 660 mls/hr IV ONETIME PRN PRN Reason: Bleeding Tranexamic Acid 1,000 mg/ (Sodium Chloride) 110 mls @ 660 mls/hr IV ONETIME PRN PRN Reason: Bleeding Lactated Ringer's (Ringers, Lactated) 1,000 mls @ 125 mls/hr IV ASDIRECTED [facility] Last Admin: 12/07/19 17:14 Dose: 125 mls/hr Oxytocin/Lactated Ringer's (Pitocin In Lr 30 Units/500 Ml) 30 unit in 500 mls @ 125 mls/hr IV TITRATE [facility]; Protocol Ibuprofen (Motrin) 800 mg PO Q8H PRN PRN Reason: mild pain or fever Last Admin: 12/08/19 20:16 Dose: 800 mg Methylergonovine Maleate (Methergine) 0.2 mg IM ASDIRECTED PRN PRN Reason: Post Hemorrhage Methylergonovine Maleate (Methergine) 0.2 mg IM ONETIME PRN PRN Reason: Excessive Vaginal Bleeding Misoprostol (Cytotec) 200 mcg PO ONETIME PRN PRN Reason: Post Hemorrhage Misoprostol (Cytotec) 1,000 mcg RECTAL ONETIME PRN PRN Reason: excessive bleeding Ondansetron HCl (Zofran) 4 mg IVPUSH Q4H PRN PRN Reason: Nausea/Vomiting Oxycodone/Acetaminophen (Percocet 325-5 Mg) 1 tab PO ONETIME PRN PRN Reason: Pain (moderate 4-6) Last Admin: 12/09/19 02:25 Dose: 1 tab Oxycodone/Acetaminophen (Percocet 325-5 Mg) 1 tab PO Q4H PRN PRN Reason: Pain (moderate 4-6) Oxycodone/Acetaminophen (Percocet 325-5 Mg) 2 tab PO Q4H PRN PRN Reason: Pain (moderate 4-6) Last Admin: 12/09/19 08:01 Dose: 2 tab Oxytocin (Pitocin) 10 unit IM ASDIRECTED PRN PRN Reason: Excessive Vaginal Bleeding Sodium Chloride (Saline Flush) 10 ml FLUSH ASDIRECTED PRN PRN Reason: Keep Vein Open Sodium Chloride (Saline Flush) 2.5 ml FLUSH ASDIRECTED PRN PRN Reason: Keep Vein Open Sodium Chloride (Normal Saline) 10 ml IV ASDIRECTED PRN PRN Reason: IV Use Discontinued Medications Bupivacaine HCl (Marcaine 0.5%) Confirm Administered Dose 30 ml .ROUTE .STK-MED ONE Stop: 12/07/19 04:45 Butorphanol Tartrate (Stadol) 1 mg IVPUSH Q1H PRN PRN Reason: Pain Last Admin: 12/06/19 16:42 Dose: 1 mg Cefazolin Sodium/Dextrose (Ancef) Confirm Administered Dose 2 gm IV .STK-MED ONE Stop: 12/07/19 04:47 Citric Acid/Sodium Citrate (Bicitra Solution) Confirm Administered Dose 30 ml .ROUTE .STK-MED ONE Stop: 12/07/19 04:45 Last Admin: 12/07/19 04:57 Dose: 30 ml Citric Acid/Sodium Citrate (Bicitra Solution) 30 ml PO ONETIME ONE Stop: 12/07/19 05:00 Ephedrine Sulfate (Ephedrine Sulfate) Confirm Administered Dose 50 mg .ROUTE .STK-MED ONE Stop: 12/06/19 20:26 Fentanyl (Sublimaze) 50 mcg IVPUSH Q5M PRN PRN Reason: Pain (severe 7-10) Stop: 12/08/19 05:03 Lactated Ringer's (Ringers, Lactated) 1,000 mls @ 150 mls/hr IV ASDIRECTED TANJA Last Admin: 12/06/19 22:00 Dose: 150 mls/hr Oxytocin/Sodium Chloride (Oxytocin 30 Unit/500 Ml-Ns) 30 unit in 500 mls @ 500 mls/hr IV TITRATE TANJA Oxytocin/Sodium Chloride (Oxytocin 30 Unit/500 Ml-Ns) 30 unit in 500 mls @ 2 mls/hr IV TITRATE TANJA; Protocol Last Titration: 12/07/19 04:54 Dose: 0 munits/min, 0 mls/hr Fentanyl/Bupivacaine HCl (Fentanyl/Bupivacaine/Ns 2 Mcg-0.125% 250 Ml) Confirm Administered Dose 250 mls @ as directed .ROUTE .STK-MED ONE Stop: 12/06/19 19:55 Ketorolac Tromethamine (Toradol) 30 mg IVPUSH Q6H TANJA Stop: 12/08/19 06:31 Last Admin: 12/08/19 06:38 Dose: 30 mg Lidocaine HCl (Xylocaine 1%) 50 ml INJECT ONETIME PRN PRN Reason: Laceration repair Misoprostol (Cytotec) 25 mcg VAG ONETIME PRN PRN Reason: Cervical Ripening Last Admin: 12/06/19 01:48 Dose: 25 mcg Misoprostol (Cytotec) 25 mcg VAG Q4H PRN PRN Reason: Cervical Ripening Last Admin: 12/06/19 10:40 Dose: 25 mcg Morphine Sulfate (Duramorph Pf) Confirm Administered Dose 10 mg .ROUTE .STK-MED ONE Stop: 12/07/19 04:47 Nalbuphine HCl (Nubain) 10 mg IVPUSH Q1H PRN PRN Reason: Pain (severe 7-10) Nalbuphine HCl (Nubain) 2.5 mg IVPUSH Q3H PRN PRN Reason: Pruritis Stop: 12/08/19 05:03 Octyl Cyanoacrylate (Dermabond Advance) Confirm Administered Dose 1 applic .ROUTE .STK-MED ONE Stop: 12/07/19 04:50 Ondansetron HCl (Zofran) Confirm Administered Dose 4 mg .ROUTE .STK-MED ONE Stop: 12/06/19 23:19 Ondansetron HCl (Zofran) 4 mg IVPUSH Q4H PRN PRN Reason: Nausea/Vomiting Last Admin: 12/06/19 23:38 Dose: 4 mg Ropivacaine (Naropin 0.2%) Confirm Administered Dose 20 ml .ROUTE .STK-MED ONE Stop: 12/06/19 19:55 Ropivacaine (Naropin 0.2%) Confirm Administered Dose 20 ml .ROUTE .STK-MED ONE Stop: 12/06/19 20:16 Sterile Water (Sterile Water For Irrigation) 1,000 ml IRR ASDIRECTED PRN PRN Reason: delivery Terbutaline Sulfate (Brethine) 0.25 mg SUBCUT ASDIRECTED PRN PRN Reason: Tacysystole - Interaction Support Person: - Recovery Exam Fundal Tone: Firm Fundal Level: 2 Fingerbreadths Below Umbilicus Fundal Placement: Midline Lochia Amount: Scant Lochia Color: Rubra/Red Perineum Description: Intact, Minimal Bruising/Swelling Episiotomy/Laceration: Approximated Bladder Status: Indwelling Catheter in Place Urinary Elimination: Indwelling Catheter - Exam General: Alert HEENT: Pupils Equal Neck: Supple Lungs: Clear to Auscultation Cardiovascular: Regular Rate, Regular Rhythm GI/Abdominal Exam: Normal Bowel Sounds Extremities: Normal Inspection Wound/Incisions: Dressing Dry and Intact Neurological: No New Focal Deficit - Problem List & Annotations (1) delivery delivered SNOMED Code(s): 574117806 Code(s): O82 - ENCOUNTER FOR DELIVERY WITHOUT INDICATION Status: Acute Current Visit: Yes - Problem List Review Problem List Initiated/Reviewed/Updated: Yes - My Orders Last 24 Hours: My Active Orders 12/08/19 12:00 Ibuprofen [Motrin] 800 mg PO Q8H PRN 12/08/19 18:22 Ready for Discharge [RC] PER UNIT ROUTINE - Assessment Assessment:: 34yo P1 s/p Primary , Mild aneamia asymtomatic met all post op goals , with some support Normal lochia PPD2 - Plan Plan:: Pain control as needed Iron daily Desires to go home if baby can be discharged. Will discharge her home today
== END 2019-12-09 10:45 | disposition home or self-care (01) | DRG 540 ==
LOC: MW.OBCHECK 00:23 → MW.OB 00:24 → OBSVTOIN 12-07 05:27 → MW.OB 12-07 08:45
PROVIDERS: ADMIT Obstetrics & Gynecology; ATTEND Obstetrics & Gynecology
PROC: 10D00Z1 Extraction of Products of Conception, Low, Open Approach (ICD-10-PCS; principal; 2019-12-07)
PROC: 10907ZC Drainage of Amniotic Fluid, Therapeutic from Products of Conception, Via Natural or Artificial Opening (ICD-10-PCS; 2019-12-07)
PROC: 10H07YZ Insertion of Other Device into Products of Conception, Via Natural or Artificial Opening (ICD-10-PCS; 2019-12-07)
PROC: 3E0234Z Introduction of Serum, Toxoid and Vaccine into Muscle, Percutaneous Approach (ICD-10-PCS; 2019-12-07)
DX: O99.02 Anemia complicating childbirth (principal); D64.9 Anemia, unspecified; Z37.0 Single live birth; Z3A.39 39 weeks gestation of pregnancy; O26.893 Other specified pregnancy related conditions, third trimester; Z67.41 Type O blood, Rh negative
CPT/HCPCS: 01967; 01968; 36415; 51702; 59025; 82803; 85014; 85018; 85027; 85460; 86592; 86593; 86850; 86900; 86901; A9270-GY; J0595; J0690; J1885; J2270; J2405; J2590; J2792; J2795; J3010; J3490; J7120